=== PATIENT | female | born 1980 | race Caucasian/White ===

== ENCOUNTER 2023-03-25 16:59 | Emergency (ER) | payer BC, SELFPAY ==
[2023-03-25 16:59] VITALS: BMI 30.1
[2023-03-25 17:12] VITALS: BP 125/89
[2023-03-25 17:57] VITALS: BP 147/98
[2023-03-25] MEDS: MOTRIN 400 MG PO (20:20)
--- NOTE | 2023-03-25 20:51 | ED.GENMED ---
Addendum entered and electronically signed by Elodia Christie PA-C 03/29/23 09:14:
still having drainage; culture gew out strep; sensitive to penicillin, bactrim less likely to cover; recommned warm compresses and change abx; pt asaw her pcp already, it is no worse than previous; continue course
Original Note:
History of Present Illness
General
Chief Complaint: Skin Problem
Source: patient
Exam Limitations: none
Time Seen by Provider: 03/25/23 19:30
Nursing documentation reviewed up to this point in time: agreed with
Travel History
Have you had any contact with someone who has COVID-19?: No
Do you have any symptoms of coronavirus? Fever > 100 degrees, chills, cough, shortness of breath, sore throat, loss of taste or smell, muscle aches, or headache?: No
History of Present Illness
History of Present Illness:
Patient presents to ED secondary to worsening pain with swelling over right vaginal wall x 3 days. Denies fever or chills. Denies nausea or vomiting. Patient has a history of folliculitis. Denies trauma.
Past History
Past History
ED Past Medical History: None
ED Past Surgical History: Gynecological (Fallopian tubes 'removed') and Orthopedic (Carpal tunnel surgery, foot surgery)
Social History
Tobacco: Smoker
Alcohol: None
Drug: None
Review of Systems
Review of Systems
Allergies reviewed?: Yes
All Other Systems: ROS reviewed and negative except as documented in HPI and ROS
Constitutional: Reports no symptoms; Denies fever or chills
ABD/GI: Reports no symptoms
Musculoskeletal: Reports no symptoms
Skin: Reports other (Vaginal wall swelling with redness)
Neurological: Reports no symptoms
Phy Exam
Physical Exam
Physical Exam:
Physical Exam
General: mild painful distress, not acutely ill. afebrile
Head: nc/at. eomi
Neck: supple. no meningeal signs
Neuro: alert and oriented. no focal neurological deficits
Skin: an approx 1cm diameter raised lesion along right vaginal wall with associated erythema/swelling, with minimal purulent drainage noted.
Psychiatric: well kept. interactive and cooperative
Extremities: no edema. no calf tenderness.
Course
Orders/Labs/Results
Orders:
Orders
03/25/23 19:40
Ibuprofen [Motrin] 400 mg PO NOW STA
Sulfamethoxazole/Trimethoprim [Bactrim 400 mg/80 mg] 1 tablet PO NOW STA
03/25/23 20:50
Sulfamethox./Trimethoprim Ds [Bactrim Ds 800 mg/160 mg] 1 tablet PO NOW STA
03/25/23 20:51
Wound Culture [Wound/Abscess/Other Culture] Urgent
LEIGH Source: Groin
Specimen Description: Right
Date Specimen was Collected: 03/25/23
Time Specimen was Collected: 20:03
Comment: Right vaginal wall abscess
Vital Signs
Initial and Last Documented VS:
Initial Vital Signs
Temp Pulse Resp BP Pulse Ox
98.2 F 110 18 125/89 97
03/25/23 17:12 03/25/23 17:12 03/25/23 17:12 03/25/23 17:12 03/25/23 17:12
Last Documented Vital Signs
Temp Pulse Resp BP Pulse Ox
98.2 F 108 16 147/98 98
03/25/23 17:12 03/25/23 17:57 03/25/23 17:57 03/25/23 17:57 03/25/23 17:57
Procedures
Incision/Drainage/Joint Aspiration
Right Vagina:
Anethesia: 1% Lidocaine with Epi
Type of procedure: incise and drain
Nature of site: abscess
Description of abscess: less than 3cm
Loculations broken up: Yes
How much fluid was obtained?: small amount
Fluid description: purulent
Treatment: left open for drainage and packed with gauze
MDM/Problems Addressed
MDM/Problems Addressed:
Incision and drainage performed with removal of copious amount of pus. Packing applied afterwards. Patient started on Bactrim with recommendation to follow-up with PCP or [facility] physician for reevaluation in 2 to 3 days.
*Critical Care Note
Total Time (30-74mins, 75-104mins- exclusive of procedures): Not Applicable
ED Attending Note
-
Portions of this chart may have been created with voice recognition software.� Occasional wrong word or��sound alike� substitutions may have occurred due to the inherent limitations of voice recognition software.
Discharge Plan
Departure
Patient Disposition: Home (Routine Discharge)
Date of Disposition: 03/25/23
Time of Disposition: 20:56
Patient with high blood pressure during this ER visit?: Yes
Condition: Good
Discharge Problem:
vaginal wall abscess
Instructions: Skin Abscess
Prescriptions:
New
sulfamethoxazole-trimethoprim [Bactrim DS] 800-160 mg tablet
1 tab PO BID Qty: 13 0RF
Referrals:
Fadi Vallecillo MD [Family Provider] -
Activity Restrictions/Additional Instructions:
As discussed, please follow up with your primary care physician and/or [facility] physician for re-evaluation in 2-3 days. Your prescription has been sent electronically to [facility] in [place].
Interventions
Interventions:
*Risk Screen - Suicide Last Done: 03/25/23 17:57
*General Assessment Last Done: 03/25/23 17:12
*Neglect/Abuse Screening Last Done: 03/25/23 17:57
ED- Fall Risk Assessment Last Done: 03/25/23 20:33
*ED COVID-19 Vaccine History Last Done: 03/25/23 17:12
*Nursing Disposition Last Done: 03/25/23 21:12
ED-Skin Assessment Last Done: 03/25/23 21:12
Discharge Date and Time
Discharge Date/Time: 03/25/23 21:14
[2023-03-25] MEDS: BACTRIM DS 800 MG/160 MG 1 TABLET PO (21:08)
== END 2023-03-25 21:14 | disposition home or self-care (01) ==
LOC: EMR 16:59
PROVIDERS: EMERGENCY PHYSICIAN Emergency Medicine; FAMILY PHYSICIAN Family Medicine
DX: N76.0 Acute vaginitis (principal); F17.200 Nicotine dependence, unspecified, uncomplicated; Z90.79 Acquired absence of other genital organ(s)
CPT/HCPCS: 99282; 10060; 87070; 87205

== ENCOUNTER → 2023-07-16 10:36 | Outpatient (REF) | payer BC, SELFPAY | LOC: HWRAD 10:36 | PROVIDERS: ATTENDING PHYSICIAN Obstetrics & Gynecology Gynecology; FAMILY PHYSICIAN Family Medicine | DX: N95.0 Postmenopausal bleeding (principal) | CPT/HCPCS: 76830; 76856 ==

== ENCOUNTER → 2024-10-17 14:01 | Outpatient (REF) | payer BC, SELFPAY | LOC: WDC 14:01 | PROVIDERS: FAMILY PHYSICIAN Family Medicine | DX: Z90.13 Acquired absence of bilateral breasts and nipples (principal) | CPT/HCPCS: 76642 ==